=== PATIENT | male | born 1995 | race Caucasian/White ===

== ENCOUNTER 2018-12-19 15:12 | Emergency (ER) | payer OTHER ==
[~2018-12-19] VITALS: Ht 180.3 cm; Wt 76.2 kg
[2018-12-19] MEDS ORDERED: KEFLEX500 M1 PO (17:33)
[2018-12-19] MEDS ORDERED: IBUPROFEN 600600 M1 PO (17:33)
[2018-12-19] MEDS ORDERED: NORCO 5-325 TA1 EAC1 PO (17:33)
[2018-12-19 18:04] VITALS: BP 104/56
== END 2018-12-19 18:06 | disposition home or self-care (01) ==
LOC: ER 15:12 → EDSEX 15:12 → ER 18:06
DX: S61.211A Laceration without foreign body of left index finger without damage to nail, initial encounter (principal); W26.8XXA Contact with other sharp object(s), not elsewhere classified, initial encounter; Y93.89 Activity, other specified; Y92.89 Other specified places as the place of occurrence of the external cause; Y99.8 Other external cause status